=== PATIENT | female | born 1985 | race Hispanic/Latino ===

== ENCOUNTER 2017-06-05 06:40 | Day surgery (SDC) | payer MEDICAID ==
[2017-06-05] MEDS ORDERED: NACL 0.9% 1000 ML 1,000 ML IV SCH (08:00)
[2017-06-05] MEDS ORDERED: DIPRIVAN 10 MG/ML IV ONE ×2 (08:48→08:49)
--- NOTE | 2017-06-05 09:10 | Anesthesia Consultation ---
Anesthesia Consult and Med Hx Date of service: 06/05/17 - Airway Anesthetic Teeth Evaluation: Good ROM Head & Neck: Adequate Mental/Hyoid Distance: Adequate Mallampati Class: Class II Intubation Access Assessment: Good - Pulmonary Exam CTA: Yes - Cardiac Exam Cardiac Exam: RRR - Pre-Operative Health Status ASA Pre-Surgery Classification: ASA3 Proposed Anesthetic Plan: MAC - Other Systems Hx Obesity: Yes
[2017-06-05] MEDS ORDERED: WATER FOR IRRIG STERILE IR ONE (09:33)
--- NOTE | 2017-06-05 09:45 | Discharge Summary ---
Providers - Providers Date of discharge: 06/05/17 Attending physician: LEANNA YOUNG Hospitalization Condition: Good Procedures: egd Hospital course: pt had an uneventful egd as part of pre-op planning for upcoming bariatric surgery Disposition: DC-01 TO HOME OR SELFCARE Core Measure Documentation - Palliative Care Palliative Care/ Comfort Measures: Not Applicable - Core Measures Any of the following diagnoses?: none Exam - Physical Exam Narrative exam: unchanged from pre-op Plan Activity: no restrictions Weight Bearing Status: Full Weight Bearing Diet: regular Follow up with: JAIDA CHATMAN NP [Other] - 7 Days
--- NOTE | 2017-06-05 09:47 | Operative Report ---
Operative Report Operative Report: OPERATIVE REPORT - EGD DATE 06/05/17 SURGERY: Upper endoscopy. SURGEON: Shannon Curry M.D. EMERGENCY MEDICAL TECHNICIAN BASIC: Negrita Duarte DO PRE OP DX: dyspepsia POST OP DX: hiatal hernia TYPE OF ANESTHESIA: MAC. ESTIMATED BLOOD LOSS: None. COMPLICATIONS: None. SPECIMENS REMOVED: None. FINDINGS: 1. Small hiatal hernia. 2. Otherwise, normal esophagus, stomach and first portion of duodenum. INDICATIONS:INDICATION FOR PROCEDURE: Patient is a 31-year-old female with a long history of morbid obesity. She is planned to have a weight loss procedure and is here for preoperative planning EGD. PROCEDURE DETAILS: After consent was reviewed, patient was taken back to the operating room where patient was placed in the left lateral decubitus position and a bite block was placed in the mouth. After a time-out was called, MAC anesthesia was initiated. I then passed the endoscope into her oropharynx, into her esophagus, visualized the entire esophagus, which was all within normal limits. I then visualized the stomach and the first portion of the duodenum and there were no abnormalities I could clearly visualize. I then retroflexed the scope in the stomach and visualized the hiatus and I could see a small hiatal hernia. I then desufflated the stomach and removed the endoscope. Patient tolerated procedure well and was transferred to recovery room in good and stable condition.
[2017-06-05 10:24] VITALS: BP 128/83
--- NOTE | 2017-06-05 13:31 | Post Anesthesia Evaluation ---
- Post Anesthesia Evaluation Patient Participated: Yes Airway Patent: Yes Stable Respiratory Function: Yes Nausea/Vomiting: No Temp > 96.8F: Yes Pain Manageable: Yes Adequeate Hydration: Yes Anesthesia Complications: No
--- NOTE | 2017-06-05 13:31 | Anesthesia Day of Surgery ---
Anesthesia Day of Surgery - Day of Surgery Patient Examined: Yes Patient H&P Reviewed: Yes Patient is NPO: Yes
== END 2017-06-05 06:41 | disposition home or self-care (01) ==
LOC: GIO 06:40
PROVIDERS: ATTEND Surgery
DX: K44.9 Diaphragmatic hernia without obstruction or gangrene (principal); E66.01 Morbid (severe) obesity due to excess calories; Z68.43 Body mass index [BMI] 50.0-59.9, adult; Z88.6 Allergy status to analgesic agent; Z98.84 Bariatric surgery status
CPT/HCPCS: 43235; 81025; J2704; J7030

== ENCOUNTER 2017-08-16 16:10 | Emergency (ER) | payer MEDICAID | END 2017-08-16 21:23 | disposition left against medical advice (07) | LOC: ED 16:10 | DX: R10.9 Unspecified abdominal pain (principal); Z53.21 Procedure and treatment not carried out due to patient leaving prior to being seen by health care provider ==

== ENCOUNTER 2017-08-16 16:11 | Emergency (ER) | payer MEDICAID ==
[2017-08-16 17:11] LABS: Basophils # (Auto) 0.1 K/mm3 (0.0-0.1); Basophils % (Auto) 0.5 % (0.0-1.8); Eosinophils # (Auto) 1.1 K/mm3 (0.0-0.4); Hematocrit 40.1 % (30.3-42.9); Hemoglobin 13.1 gm/dl (10.1-14.3); Lymphocytes # (Auto) 2.1 K/mm3 (1.2-5.4); Mean Corpuscular HGB Conc 33 % (30-34); Mean Corpuscular Hemoglobin 28 pg (28-32); Mean Corpuscular Volume 86 fl (79-97); Monocytes # (Auto) 0.5 K/mm3 (0.0-0.8); Monocytes % (Auto) 3.9 % (0.0-7.3); Platelet Count 365 K/mm3 (140-440); Red Blood Count 4.67 M/mm3 (3.65-5.03)
[2017-08-16 17:25] LABS: Bacteria,Urine 1+ /HPF (Negative); Bilirubin,Urine NEG (Negative); Blood,Urine SM (Negative); Color,Urine Yellow (Yellow); Mucus,Urine 2+ /HPF; Urobilinogen,Urine < 2.0 mg/dL (<2.0)
[2017-08-16 17:28] LABS: HCG Qualitative,Urine Negative (Negative)
[2017-08-16 17:31] LABS: BUN/Creatinine Ratio 15; Blood Urea Nitrogen 9 mg/dL (7-17); Calcium 8.9 mg/dL (8.4-10.2)
[2017-08-16 17:32] LABS: Alanine Aminotransferase 17 units/L (7-56); Hemolysis Index 9
[2017-08-16 17:34] LABS: Bilirubin,Direct < 0.2 mg/dL (0-0.2)
[2017-08-16] MEDS ORDERED: NACL 0.9% 1000 ML 1,000 ML IV ONE (21:23)
[2017-08-16] MEDS ORDERED: NACL ONE (21:55)
--- NOTE | 2017-08-17 01:25 | Cat Scan Report ---
FINAL REPORT EXAM: CT ABDOMEN PELVIS W CON HISTORY: swelling to RUQ TECHNIQUE: Dynamic helical CT scan through the abdomen and pelvis during and again after intravenous injection of iodinated contrast. Images are reconstructed in the sagittal and coronal planes. PRIORS: None. FINDINGS: The lung bases are clear. The liver, pancreas, spleen and adrenal glands appear normal. There are surgical clips in the gallbladder fossa. The kidneys appear normal. The uterus and ovaries appear grossly normal. There are surgical clips in the stomach. There are no abnormally dilated loops of bowel or acute inflammatory changes. There are bowel anastomotic jose at the level of the proximal jejunum. A normal-appearing appendix is identified. The abdominal aorta has a normal diameter. The bones and subcutaneous soft tissues are unremarkable for age. IMPRESSION: 1. Postsurgical changes of the stomach and proximal jejunum. Correlation with surgical history is recommended. 2. No acute findings in the abdomen/pelvis
--- NOTE | 2017-08-17 01:35 | Emergency Department Report ---
ED Abdominal Pain HPI - General Chief Complaint: Abdominal Pain Stated Complaint: RIGHT SIDE ABDOMINAL SWELLING Time Seen by Provider: 08/16/17 21:10 Source: patient Mode of arrival: Ambulatory Limitations: No Limitations - History of Present Illness Initial Comments: Patient is a 32-year-old female who is presenting status post bariatric surgery because of a lump that she feels in the right upper quadrant. Patient noticed this today at approximately 1 PM. Patient had her postop visit yesterday with Dr. Pina. Patient is 7 week status post bariatric surgery. Patient states this area of swelling is comfortable and rates the discomfort as 4 out of 10 in severity. Patient states she hasn't had to take much of her pain medicines secondary to the fact she has a high pain tolerance but she is worried about this area swelling since it is not associated with one of her wounds from her laparoscopic surgery. She denies any nausea vomiting fever at this time. Severity scale (0 -10): 5 - Related Data Home Medications Medication Instructions Recorded Confirmed Last Taken Levothyroxine Sodium [Synthroid] 175 mcg PO QDAY 08/05/17 08/12/17 08/11/17 Maxalt 1 tab PO DAILY PRN 08/05/17 08/12/17 2 Weeks Ago ~07/29/17 clonazePAM [Klonopin] 1 mg PO DAILY PRN 08/05/17 08/12/17 08/12/17 07:50 Allergies Allergy/AdvReac Type Severity Reaction Status Date / Time codeine Allergy Vomiting,ITCHING, Verified 08/05/17 13:44 DIZZINESS ED Review of Systems ROS: Stated complaint: RIGHT SIDE ABDOMINAL SWELLING Other details as noted in HPI Comment: All other systems reviewed and negative ED Past Medical Hx - Past Medical History Hx Arthritis: Yes Hx Headaches / Migraines: Yes Hx Asthma: Yes (seasonal, inhaler use last fall ) Hx HIV: No - Surgical History Hx Cholecystectomy: Yes Additional Surgical History: gatrsic bypass surgery 08/12/17 @ [facility] by Dr. Jonas Pina - Social History Smoking Status: Never Smoker Substance Use Type: None - Medications Home Medications: Home Medications Medication Instructions Recorded Confirmed Last Taken Type Levothyroxine Sodium [Synthroid] 175 mcg PO QDAY 08/05/17 08/12/17 08/11/17 History Maxalt 1 tab PO DAILY PRN 08/05/17 08/12/17 2 Weeks Ago History ~07/29/17 clonazePAM [Klonopin] 1 mg PO DAILY PRN 08/05/17 08/12/17 08/12/17 07:50 History ED Physical Exam - General Limitations: No Limitations General appearance: alert, in no apparent distress - Head Head exam: Present: atraumatic, normocephalic - Eye Eye exam: Present: normal appearance - ENT ENT exam: Present: mucous membranes moist - Neck Neck exam: Present: normal inspection - Respiratory Respiratory exam: Present: normal lung sounds bilaterally. Absent: respiratory distress, wheezes, rales - Cardiovascular Cardiovascular Exam: Present: regular rate, normal rhythm. Absent: systolic murmur, diastolic murmur, rubs, gallop - GI/Abdominal GI/Abdominal exam: Present: soft, tenderness, normal bowel sounds, other ( patient has some mild diffuse tenderness. Her wounds are dressed and clean. Patient does have some increase Friday swelling in the right upper quadrant.) . Absent: guarding, rebound, rigid - Extremities Exam Extremities exam: Present: normal inspection - Back Exam Back exam: Present: normal inspection - Neurological Exam Neurological exam: Present: alert, oriented X3 - Psychiatric Psychiatric exam: Present: normal affect, normal mood - Skin Skin exam: Present: warm, dry, intact, normal color. Absent: rash ED Course Vital Signs 08/16/17 08/16/17 16:17 17:50 Temperature 98.3 F 98.2 F Pulse Rate 94 H 95 H Respiratory 18 20 Rate Blood Pressure 127/82 139/91 O2 Sat by Pulse 98 Oximetry ED Medical Decision Making - Lab Data Result diagrams: 08/16/17 16:59 08/16/17 16:59 - Radiology Data Radiology results: report reviewed DT abdomen and pelvis shows normal postsurgical changes. There is no hematoma in the area of swelling. Critical care attestation.: If time is entered above; I have spent that time in minutes in the direct care of this critically ill patient, excluding procedure time. ED Disposition Clinical Impression: Abdominal pain Qualifiers: Abdominal location: unspecified location Qualified Code(s): R10.9 - Unspecified abdominal pain Disposition: DC-01 TO HOME OR SELFCARE Is pt being admited?: No Does the pt Need Aspirin: No Condition: Stable Instructions: Abdominal Pain (ED) Referrals: JAY RHODES MD [Primary Care Provider] - 3-5 Days
[2017-08-17 02:03] VITALS: BP 111/67
== END 2017-08-17 01:59 | disposition home or self-care (01) ==
LOC: ED 16:11
DX: R10.9 Unspecified abdominal pain (principal); M19.90 Unspecified osteoarthritis, unspecified site; G43.909 Migraine, unspecified, not intractable, without status migrainosus; J45.909 Unspecified asthma, uncomplicated; Z90.49 Acquired absence of other specified parts of digestive tract; Z98.84 Bariatric surgery status; Z88.5 Allergy status to narcotic agent
CPT/HCPCS: 36415; 74177; 80048; 80074; 81001; 81025; 83690; 85025; 96360; 99284; J7030; Q9967